=== PATIENT | female | born 1985 | race Caucasian/White ===

== ENCOUNTER 2017-03-29 19:49 | Emergency (ER) | payer SELFPAY ==
--- NOTE | ~2017-03-29 | ER ---
PATIENT'S NAME: BRENDA ALVARADO [facility] AGE: 31 Y [address] ROOM: [place] [address] LOCATION: [facility] ADMIT DATE: 03/29/2017 ER/Outpatient Report DISCHARGE DATE: 03/29/2017 FAMILY PHYSICIAN: Evangelista Mccracken MD ATTENDING PHYSICIAN: Bigg Stcok Time of Arrival: 2027 hours. Time of Evaluation: 2035 hours. CHIEF COMPLAINT: Abdominal pain. HISTORY OF PRESENT ILLNESS: The patient states for the last week, she has had some lower abdominal pain that has radiated around to her lower back. She does have some burning with urination. She has not been nauseated. No vomiting. She has not had diarrhea. She had normal bowel movement yesterday. ALLERGIES: NO KNOWN ALLERGIES. MEDICATIONS: No current medications. PAST MEDICAL HISTORY: Benign. PAST SURGICAL HISTORY: . [employer] HISTORY: Last menstrual period was a month ago. She is 4 days late on her periods she reports. SOCIAL HISTORY: She denies use of tobacco, drugs, or alcohol. REVIEW OF SYSTEMS: All negative other than those mentioned in the HPI. PHYSICAL EXAMINATION: VITAL SIGNS: She weighs 110.6 kg, blood pressure is 150/87, pulse of 82, respirations 19, temp of 97.3 tympanic, O2 saturation is 99% on room air. GENERAL: She is awake, alert, and oriented x4. SKIN: [place], warm, and dry. PATIENT'S NAME: BRENDA ALVARADO [facility] AGE: 31 Y [address] ROOM: [place] [address] LOCATION: [facility] ADMIT DATE: 03/29/2017 ER/Outpatient Report DISCHARGE DATE: 03/29/2017 FAMILY PHYSICIAN: Evangelista Mccracken MD ATTENDING PHYSICIAN: iBgg Stock RESPIRATIONS: Even and nonlabored. Lung sounds are clear throughout. HEART: Regular rate and rhythm. ABDOMEN: Soft and nondistended. Bowel sounds are present. She has negative tenderness in the flank area. LABORATORY DATA AND X-RAYS: Lab work was drawn. CBC is within normal limits. Chem panel is within normal limits. Serum is negative. UA was negative for leukocytes and nitrites but positive on the micro for bacteria. IMPRESSION: Urinary tract infection. PLAN: Home, rest, fluids. Tylenol or ibuprofen for discomfort. Prescription was written for Bactrim DS. Follow up with primary provider in the next 2 to 3 days if symptoms persist or worsen. She verbalized understanding. VICK BUENO APRN FOR [facility]/kenji /[id number] d: 03/29/17 2344 t: 03/31/17 1820, OUTPATIENT REPORT
[2017-03-29 20:46] LABS: BILIRUBIN URINE NEGATIVE (NEGATIVE); BLOOD URINE 50 /UL (NEGATIVE); COLOR URINE YELLOW (YELLOW); GLUCOSE URINE NEGATIVE (NEGATIVE); KETONE URINE NEGATIVE (NEGATIVE); LEUKOCYTES URINE NEGATIVE /UL (NEGATIVE); NITRITE URINE NEGATIVE (NEGATIVE); PH URINE 6.5 (4.0-8.0); PROTEIN URINE 15 mg/dL (NEGATIVE); TURBIDITY URINE 1+ (CLEAR); UROBILINOGEN URINE NORMAL (NORMAL)
[2017-03-29 20:57] LABS: BACTERIA URINE MODERATE (NEGATIVE); WBC URINE 0-2 #/HPF (NEGATIVE)
[2017-03-29 21:29] LABS: BASOPHIL % 0.4 %; EOSINOPHIL # 0.3 K/uL (0.0-0.5); EOSINOPHIL % 3.1 %; HEMATOCRIT 35.7 % (33.0-46.0); HEMOGLOBIN 11.6 g/dL (11.0-15.0); IMMATURE GRANULOCYTE % 0.3 %; LYMPHOCYTE # 3.6 K/uL (0.8-4.0); LYMPHOCYTE % 34.3 %; MCH 28.2 pg (27.0-34.0); MCHC 32.5 gm/dL (32.0-36.5); MCV 86.7 fl (83.0-98.0); MONOCYTE # 0.7 K/uL (0.0-1.0); MONOCYTE % 6.3 %; MPV 9.8 fl (9.4-12.4); NEUTROPHIL # (ANC) 5.9 K/uL (1.8-7.8); NEUTROPHIL % 55.6 %; NRBC % 0 /100WBC (0-0.00); PLATELET COUNT 303 K/uL (150-450); RBC 4.12 M/uL (3.50-5.50); RDW-CV 14.7 % (11.9-14.6); WBC 10.6 K/uL (4.0-11.0)
[2017-03-29 21:47] LABS: ALBUMIN 3.9 gm/dL (3.5-5.0); ALK PHOS 68 IU/L (33-138); ALT 25 IU/L (12-78); ANION GAP 10.9 (10.0-19.0); AST 16 IU/L (10-40); BLOOD UREA NITROGEN 14 mg/dL (6-24); CHLORIDE 106 mMol/L (96-110); CO2 28 mMol/L (22-32); ESTIMATED GFR (MDRD EQUATION) > 60; POTASSIUM 3.9 mMol/L (3.7-5.1); SODIUM 141 mMol/L (135-145); TOTAL BILIRUBIN 0.2 mg/dL (0.0-1.5)
== END 2017-03-29 22:06 | disposition disaster alternative care site (69) ==
LOC: GMED 19:49
PROVIDERS: Nurse Practitioner Family
DX: N39.0 Urinary tract infection, site not specified (principal); Z98.890 Other specified postprocedural states